=== PATIENT | female | born 1960 | race African-American/Black ===

== ENCOUNTER 2024-03-17 18:12 | Emergency (ER) | payer MEDICARE, OTHER ==
[~2024-03-17] VITALS: Ht 167.6 cm; Wt 70.0 kg
[2024-03-17 18:24] VITALS: BP 141/57; PULSE 84; RESP 16; TEMP 98.8; O2SAT 100
== END 2024-03-17 19:01 ==
LOC: ER 19:01
DX: S00.03XA Contusion of scalp, initial encounter (principal); F32.A Depression, unspecified; I10 Essential (primary) hypertension; X58.XXXA Exposure to other specified factors, initial encounter; Y93.89 Activity, other specified; Y92.89 Other specified places as the place of occurrence of the external cause; Y99.8 Other external cause status
CPT/HCPCS: 99283